=== PATIENT | male | born 1980 | race Caucasian/White ===

== ENCOUNTER 2025-02-21 15:14 | Emergency (ER) | payer SELFPAY ==
--- NOTE | ~2025-02-21 | XR_ITS ---
HISTORY: injury/fall COMPARISON: None TECHNIQUE: 4 views of the left knee were performed FINDINGS: No acute or subacute fracture. Medial and lateral tibiofemoral joint space narrowing is identified. High riding patella is noted. Thickening of the tibial patellar tendon is noted within the infrapatellar joint space with incomplet e visualization of the entirety of the tendon on plain film evaluation. No suprapatellar joint effusion is identified. IMPRESSION: High riding patella. Agree with CT examination. No acute displaced fracture. Reviewed, dictated and finalized at location A.
--- NOTE | ~2025-02-21 | CT_ITS ---
CLINICAL INDICATION: Left knee pain after a fall. COMPARISON: Reference is made to plain radiograph of the knee performed 13 minutes earlier. TECHNIQUE: Computed tomography (CT) of the left knee was performed without intravenous contrast. The dose-length product was 450.98 mGy-cm. FINDINGS/OBSERVATIONS: Redemonstration of patella mehrdad and a large joint effusion. Tendon thickening and a wavy appearance of the tibial patellar tendon is also redemonstrated, consist ent with patellar tendon rupture. The medialmost fibers of the quadriceps tendon are intact. Limited visualization of the lateralmost fibers, secondary to modality. No acute fracture is appreciated. IMPRESSION: Left-sided patellar tendon rupture. Reviewed, dictated and finalized at location A.
[2025-02-21 15:18] VITALS: BP 142/89; PULSE 76; RESP 14; TEMP 36.1; O2SAT 99
--- NOTE | 2025-02-21 15:39 | ED_ITS ---
HPI - Extremity Injury (Lower) General Chief Complaint: Extremity Injury, Lower <April Beard APRN - Last Filed: 02/21/25 15:42> Stated Complaint: L. knee injury after slip and fall <April Beard APRN - Last Filed: 02/21/25 15:42> Time Seen by Provider: 02/21/25 15:30 <April Beard APRN - Last Filed: 02/21/25 15:42> Focused HPI: Patient is a 44-year-old male who presents to the ER with left knee pain. He reports he was for golf and went looking for his for his be in [place]. Patient reports the slope was slippery and he fell. He reports he hurt his left knee and felt extreme pain. Patient is currently unable to move his left knee joint. He denies any other medical history relevant to this ER visit besides migraines. Patient is any daily medication. He denies any numbness and tingling, decreased ankle movement, decreased hip movement, or calf pain. GENERAL: Ill-appearing, well-nourished, and in distress d/t pain. HEAD: Normocephalic, atraumatic. CHEST: Clear to auscultation. ?No respiratory distress. HEART: Regular rate and rhythm.? NEURO: ?Alert and oriented x3. Patient screened in triage and initial orders placed.? ?Additional care and disposition to be based upon?diagnostic testing and treatment. <April Beard APRN - Last Filed: 02/21/25 15:42> Focused HPI: Patient is a 44-year-old male who presents to the ER with left knee pain. He reports he was playing golf and went looking for his for his ball in [place]. Patient reports the slope was slippery and he fell. He reports he hurt his left knee and felt extreme pain. Patient is currently unable to move his left knee joint. He denies any other medical history relevant to this ER visit besides migraines. Patient is any daily medication. He denies any numbness and tingling, decreased ankle movement, decreased hip movement, or calf pain. GENERAL: Ill-appearing, well-nourished, and in distress d/t pain. HEAD: Normocephalic, atraumatic. CHEST: Clear to auscultation. ?No respiratory distress. HEART: Regular rate and rhythm.? NEURO: ?Alert and oriented x3. Patient screened in triage and initial orders placed.? ?Additional care and disposition to be based upon?diagnostic testing and treatment. <Rashid Hinojosa MD - Last Filed: 02/21/25 20:30> History of Present Illness HPI Narrative: Agree with the HPI above <Rashid Hinojosa MD - Last Filed: 02/21/25 20:30> Related Data Allergies/Adverse Reactions: Allergies Allergy/AdvReac Type Severity Reaction Status Date / Time No Known Allergies Allergy Verified 02/21/25 15:23 <April Beard APRN - Last Filed: 02/21/25 15:42> Review of Systems Review of Systems: As reviewed above in HPI <Rashid Hinojosa MD - Last Filed: 02/21/25 20:30> Exam Narrative: GENERAL: Uncomfortable appearing from pain HEAD: [Normocephalic, atraumatic.] EYES: [PERRLA and EOMI.] ENT: Nares clear, no rhinorrhea or epistaxis. Mucous membranes moist. NECK: Supple. CHEST: [Clear to auscultation. No respiratory distress.] HEART: [Regular rate and rhythm]. No murmur heard. [Normal peripheral pulses.] ABDOMEN: [Soft, nondistended], [nontender], [No rigidity or guarding] EXTREMITIES: Prepatellar effusion, high-riding patella on examination, no medial or lateral joint laxity, negative Anjel's testing. inability to hold extensor mechanism of the left lower extremity. Ankle plantar flexion and dorsiflexion is intact with full strength. 2+ dorsalis pedis pulse. Warm extremity. Able to wiggle the toes. No overlying skin changes. SKIN: Warm, dry, no rash. NEURO: [No focal deficits]. Alert and oriented [x3.] PSYCH: [Normal mood and affect.] <Rashid Hinojosa MD - Last Filed: 02/21/25 20:30> Course Vital Signs Vital signs: Vital Signs Temperature 36.1 C L 02/21/25 15:18 Pulse Rate 76 02/21/25 15:18 Respiratory Rate 14 02/21/25 15:18 Blood Pressure 142/89 H 02/21/25 15:18 Pulse Oximetry 99 02/21/25 15:18 Oxygen Delivery Room Air 02/21/25 15:18 Temperature 37.1 C 02/21/25 17:45 Pulse Rate 57 L 02/21/25 17:45 Respiratory Rate 18 02/21/25 17:45 Blood Pressure 139/64 02/21/25 17:45 Pulse Oximetry 96 02/21/25 17:45 Oxygen Delivery Room Air 02/21/25 15:18 <April Beard, CORPORATE ASSOCIATE ATTORNEY - Last Filed: 02/21/25 15:42> Vital Signs Temperature 36.1 C L 02/21/25 15:18 Pulse Rate 76 02/21/25 15:18 Respiratory Rate 14 02/21/25 15:18 Blood Pressure 142/89 H 02/21/25 15:18 Pulse Oximetry 99 02/21/25 15:18 Oxygen Delivery Room Air 02/21/25 15:18 Temperature 37.1 C 02/21/25 17:45 Pulse Rate 57 L 02/21/25 17:45 Respiratory Rate 18 02/21/25 17:45 Blood Pressure 139/64 02/21/25 17:45 Pulse Oximetry 96 02/21/25 17:45 Oxygen Delivery Room Air 02/21/25 15:18 <Rashid Hinojosa MD - Last Filed: 02/21/25 20:30> MDM - Extremity Injury (Lower) MDM Narrative Medical decision making narrative: 44-year-old male presenting to the emergency department for evaluation of left knee pain after an injury. Patient states that he slipped down a hill while trying to retrieve his frisbee while playing golf. He felt a significant pop and felt immediate pain in his left knee and fell to the ground. He was not able to hold extensor mechanism or lift his leg against gravity. Distal neuro vasculature is intact. Examination reveals prepatellar effusion, high-riding patella on examination, no medial or lateral joint laxity, negative Anjel's testing. inability to hold extensor mechanism of the left lower extremity. Ankle plantar flexion and dorsiflexion is intact with full strength. 2+ dorsalis pedis pulse. Warm extremity. Able to wiggle the toes. No overlying skin changes. He has normal vital signs without any tachycardia, fever, hypoxia significant blood pressure concerns. Does not take any blood pressure medications or anticoagulants. Differential diagnosis includes patellar tendon disruption, quadriceps tendon disruption, patellar fracture, knee dislocation, patellar dislocation, internal derangement of the knee, fracture of the tib-fib or femur. Patient was given [place] and Dilaudid for analgesia. X-rays at bedside show patella [place] with clinical exam concerning for patellar tendon disruption. CT scan without contrast for further evaluation. Patient placed in a knee immobilizer. Will contact Orthopedics for recommendations. CT scan confirms patellar tendon rupture. Patient is adequately controlled from pain perspective during repeat evaluations, placed in a knee immobilizer provided weight-bearing crutches. I discussed the case with Dr. Diamond from Orthopedics and plan will be for outpatient follow-up with him. Patient co mfortable with this plan and patient was safely discharged home at this time with pain medications and orthopedics referral. <Rashid Hinojosa MD - Last Filed: 02/21/25 20:30> Medical Records Attestation: I reviewed the patient's medical records. <Rashid Hinojosa MD - Last Filed: 02/21/25 20:30> Imaging Data Attestation: I personally reviewed and interpreted this imaging study as follows: <Rashid Hinojosa MD - Last Filed: 02/21/25 20:30> My impression: Impressions Knee X-Ray 02/21/25 16:24 IMPRESSION: High riding patella. Agree with CT examination. No acute displaced fracture. Knee CT 02/21/25 16:59 IMPRESSION: Left-sided patellar tendon rupture. <Rashid Hinojosa MD - Last Filed: 02/21/25 20:30> Discharge Plan Discharge Clinical Impression: Rupture of left patellar tendon <April Beard APRN - Last Filed: 02/21/25 15:42> Patient Disposition: Home <April Beard APRN - Last Filed: 02/21/25 15:42> Condition: Stable <April Beard APRN - Last Filed: 02/21/25 15:42> Instructions: Antibiotic Form, Knee Immobilizer (ED), Tendon Rupture (ED), Patellar Tendon Repair (DC) <April Beard APRN - Last Filed: 02/21/25 15:42> Additional Instructions: You have a patellar tendon rupture of your left knee which is why you cannot extend the knee against gravity. We will send you home with strong pain medicines and anti-inflammatory measures. Maintain the knee immobilizer for comfort, you can bear weight as tolerated but use crutches for ambulation support. We spoke to orthopedics who will see you in their office for follow-up appointment. Call the number tomorrow morning to establish visit. Return with any emergent concerns such as intractable pain, inability to ambulate, worsening swelling or any new symptoms such as numbness in the leg. <April Beard APRN - Last Filed: 02/21/25 15:42> Patient Language: Citizen Of [place] <April Beard APRN - Last Filed: 02/21/25 15:42> Prescriptions: New ibuprofen 800 mg tablet 800 mg PO TID PRN (Reason: pain) Qty: 30 0RF methocarbamol 750 mg tablet 750 mg PO TID PRN (Reason: pain) Qty: 20 0RF lidocaine 5 % adhesive patch,medicated 1 patch topical DAILY Qty: 15 0RF Rx Instructions: leave on most painful area for up to 12 hrs acetaminophen [Tylenol Extra Strength] 500 mg tablet 1,000 mg PO TID PRN (Reason: pain) Qty: 30 0RF oxycodone 5 mg tablet 5 mg PO Q8H PRN (Reason: pain) Qty: 14 0RF <April Beard APRN - Last Filed: 02/21/25 15:42> Follow-up/Referrals: Alvaro Ferguson MD [Physician] - 2 Days (Patellar tendon rupture) PHYSICIAN,IMMIGRATION SPECIALIST [Primary Care Provider] - <April Beard APRN - Last Filed: 02/21/25 15:42> Time of Disposition: 17:27 <April Beard APRN - Last Filed: 02/21/25 15:42> 17:27 <Rashid Hinojosa MD - Last Filed: 02/21/25 20:30>
[2025-02-21] MEDS: HYDROcodone/acetaminophen (*CRX) 5-325 MG TABLET 1 TAB PO (15:51)
[2025-02-21] MEDS: HYDROmorphone HCL INJ (*CRX) 2 MG/ML VIAL 1 MG IM (16:43)
[2025-02-21 17:45] VITALS: BP 139/64; PULSE 57; RESP 18; TEMP 37.1; O2SAT 96
== END 2025-02-21 17:47 | disposition home or self-care (01) ==
PROVIDERS: Emergency Provider Student in an Organized Health Care Education/Training Program
DX: S76.112A Strain of left quadriceps muscle, fascia and tendon, initial encounter (principal); W01.0XXA Fall on same level from slipping, tripping and stumbling without subsequent striking against object, initial encounter
CPT/HCPCS: 73564; 73700; 96372; 99284; A9270; J1171

== ENCOUNTER 2025-03-01 01:08 | Day surgery (SDC) | payer MEDICAID, SELFPAY ==
[2025-02-24 11:14] VITALS: BMI 27.3
--- NOTE | 2025-02-24 11:15 | PC.NURSE ---
Report to the Outpatient Waiting Room, entrance under the green pavilion located off [facility], at time _1030_ on date _[phone]_. Planned Procedure Time: _1230_.? Time changes happen often and if your time is changed the preop area will call you the afternoon before. - You and your visitor will be asked to self-screen and do not enter if you have any COVID symptoms. Please call surgeon if you need to reschedule. - A mask is optional within the hospital at this time. Patients may have clear liquids (water, carbonated beverages, clear teas, apple juice) until 3 hours prior to surgery with a maximum of 20 ounces. - No food from midnight until time of surgery and no smoking, or chewing tobacco (or any form of nicotine). No chewing gum, candy or mints. Take only the following medications with a SIP of water on the morning of surgery: ___Oxycodone and Acetaminophen DO NOT STOP ANY OF YOUR OTHER PRESCRIPTION MEDICATIONS PRIOR TO SURGERY EXCEPT THE FOLLOWING Hold all vitamins and supplements for 3 days per anesthesiologist. Medications to discontinue per physician No Advil or Ibuprofen until after surgery.____ Date to take last dose Please no make-up, nail congolese, hairspray, perfume, deodorant, or body powder the day of surgery.? No jewelry (including any body piercings) or valuables the day of surgery, leave them at home.? Please take a shower or bath the night before, or the morning of, surgery with an antibacterial soap.? Wear comfortable, loose fitting clothing.? - Jewelry must be removed prior to entering the operating room.? Rings and piercings that are not removed may be cut off. - The hospital will not accept responsibility for valuables.? - Please leave all valuables, including medications, at home the day of surgery. If you are going home after surgery, a licensed pick up truck driver must drive you home.? - NO public transportation without another adult if you receive anesthesia. - We recommend that an adult stay with you for 24 hours following discharge. - We also recommend that you do not drive, make important decision, drink alcoholic beverages, or take any drugs that were not prescribed by your health care provider for at least 24 hours after your discharge time. Follow any additional instructions given to you from your surgeon. Telephone instructions given to __Jesse___and asked if any additional questions and then verbalized understanding. Patient advised to call surgeon office or pre surgery nurse liaison [phone] if any additional questions.
[2025-03-01] VITALS (12 sets, daily range): BP systolic 125–158; BP diastolic 69–98; PULSE 52–80; RESP 12–20; TEMP 36.3–36.6; O2SAT 93–98; BMI 29.5
[2025-03-01] MEDS: KETOROLAC 15 MG/ML VIAL (*BKC) IV PUSH (11:25)
--- NOTE | 2025-03-01 11:39 | WPDHPUPDATE1 ---
History and Physical Update Update Date/Time: 03/01/25 11:39 History and Physical has been reviewed, including an updated exam of the patient. There are NO changes in the patient's condition. Risks, benefits, and alternatives have been discussed and questions answered. Patient agrees to proceed with procedure.
--- NOTE | 2025-03-01 12:37 | P.PNAN_ITS ---
Anes - Initial Pre Proc Eval Procedure: Operation Date: 03/01/25 12:30 Proposed Procedures p Left Knee Patellar Tendon Reconstruction - Alvaro Ferguson MD Date/Time: 03/01/25 12:37 Surgeon: Alvaro Ferguson MD Pre Op Diagnosis: left knee patellar tendon rupture Patient Data Age: 44 Gender: M Height: 1.88 m Weight: 104.5 kg Last Vital Signs Temp 36.3 C L 03/01/25 10:35 Pulse 55 L 03/01/25 10:35 Resp 16 03/01/25 10:35 BP 158/98 H 03/01/25 10:35 Pulse Ox 98 03/01/25 10:35 O2 Del Method Room Air 03/01/25 10:35 Allergies Allergy/AdvReac Type Severity Reaction Status Date / Time No Known Allergies Allergy Verified 03/01/25 11:43 Home Medications ?Medication ?Instructions ?Recorded ?Confirmed ?Type acetaminophen 500 mg tablet 1,000 mg (2 x 500 mg) PO TID PRN 02/21/25 03/01/25 Rx (Tylenol Extra Strength) pain #30 tabs ibuprofen 800 mg tablet 800 mg PO TID PRN pain #30 tabs 02/21/25 02/24/25 Rx lidocaine 5 % topical patch 1 patch topical DAILY #15 ea 02/21/25 02/24/25 Rx vitamin B complex 1 cap PO DAILY 02/24/25 03/01/25 History methocarbamol 750 mg tablet 750 mg PO TID PRN pain #20 tabs 02/25/25 03/01/25 Rx ondansetron 8 mg disintegrating 8 mg PO Q6-8H PRN nausea and 02/25/25 03/01/25 Rx tablet vomiting #10 tabs oxycodone 5 mg tablet 5 mg PO Q8H PRN pain #30 tabs 02/25/25 03/01/25 Rx polyethylene glycol 3350 17 17 g PO DAILY PRN constipation 02/25/25 03/01/25 Rx gram/dose oral powder #119 grams sennosides 8.6 mg-docusate sodium 1 tab-cap PO BID #30 tabs 02/25/25 03/01/25 Rx 50 mg tablet Patient hx anesthesia problems: none Family hx anesthesia problems: none Results Review: All pre-operative results and documents have been reviewed as part of the pre-operative evaluation. [facility] Social History Social History Smoking status: Never smoker Tobacco type: cigarettes Substance use type: marijuana Other substance usage details: Infrequent. Anes - Eval Final PreProcedure Day of Procedure 03/01/25 12:37 Patient weight: overweight Heart: regular rate and rhythm Lungs: decreased breath sounds Airway: Mallampati scale class II Neurological: alert and oriented Last oral intake: >/= 8 hours ASA classification: II Emergent: no Anesthetic plan: proceed Anesthesia type and monitoring: general LMA and standard monitoring Results Review: All pre-operative results and documents have been reviewed as part of the pre- operative evaluation. Informed Consent: The patient's anesthetic plan and its attendant risks and benefits were discussed with the patient/family/POA. Questions were solicited and answers provided to the satisfaction of the patient/family/POA.
[2025-03-01] MEDS: ceFAZolin 2 GM/D5W 50 ML 2 GM/50 ML BAG IVPB (12:53)
[2025-03-01] MEDS: BUPivacaine HCL 0.5% PF 30 ML VIAL INFILTRATE (13:28)
[2025-03-01] MEDS: LACTATED RINGERS 1,000 ML 30 ML IV CONT ×2 (15:03→16:40)
--- NOTE | 2025-03-01 15:31 | W.PM.PROC2 ---
Procedure Note - Detailed Date of Procedure 03/01/25 Pre-op Diagnosis left knee patellar tendon rupture Post-op Diagnosis Same Procedure Performed Reconstruction left knee patellar tendon rupture with graft, secondary. Surgeon Alvaro Ferguson MD Factorer 1st perinatal breastfeeding assistant Anesthesia General Indications 44-year-old who fell and injured his left knee. He sustained a left infrapatellar tendon rupture from the patella. No ability to actively extend the knee. He desires operative treatment. Findings Complete rupture infrapatellar tendon with destruction of the tendon itself requiring graft application. Description of Procedure Patient identified in the preoperative holding. Informed consent given. Operative extremity marked. Patient received intravenous antibiotics. Patient brought to the operating room where underwent general anesthetic by anesthesia team. Positioned supine on operating room table. Time-out performed confirming the patient, site of the surgery and the plan. Left knee prepped and draped usual sterile surgical fashion using a ChloraPrep skin solution. Knee exsanguinated and a thigh tourniquet inflated to 250 mmHg. Standard anterior midline longitudinal incision made with 15 blade knife. Hemostasis controlled electrocautery. Incision was centered over the distal patella. Fascia was incised line skin incision. A large seroma was noted and have complete defect in the infrapatellar tendon as well as medial and lateral retinacula. The knee was suctioned out and irrigated as well and Suctioned again. Infrapatellar tendon was then repaired. Arthrex fiber tape suture was used in a locking Krackow type stitch. 3 strands of suture were utilized and brought out the proximal end of the infrapatellar tendon. Guide pins were then placed from distal to proximal through the patella. 1 was placed in the center and 1 medial, 1 lateral. Fiber tack suture device was then passed through the holes from proximal to distal with the fiber tack anchored proximally. With correct tension the sutures from the infrapatellar ligament were placed through the FiberTape loops. And running locking Krackow suture was then continued distal to bring the suture out the distal and of the infrapatellar ligament. Suture was tied to itself. Loops were then tightened into the patella to draw the infrapatellar ligament to the distal and of the patella. Good fixation was noted. The SwiveLock anchors were then placed in the proximal tibia and the FiberTape suture was brought down 3 medial and 3 lateral to the SwiveLock anchors with the knee in 30? of flexion to provide and internal brace. 0 Vicryl interrupted suture was then used to repair the medial and lateral retinaculum. Wound was thoroughly irrigated antibiotic solution. Due to the amount of damage to the infrapatellar ligament augmentation with graft was felt to be indicated. A 3 mm aflex human dermal graft was sutured into place with 3-0 Monocryl over the infrapatellar ligament. The capsule was then repaired with 0 Vicryl interrupted suture. Subcutaneous tissue was repaired with 2 Vicryl interrupted suture and 3-0 Monocryl interrupted suture and skin was repaired with job. Sterile dressing applied. The patient was then woken from anesthesia, extubated and taken to the recovery room in stable condition. All sponge, needle, instrument counts were correct at the end of the case. Implants Double knotless knee fiber tack x3, 4.75 mm SwiveLock x2, 3 mm a flex human dermis graft Estimated Blood Loss 10 Tourniquet Time Total Tourniquet Time: 75 Drains No Packing No Pathology None sent Complications None Condition Stable Disposition PACU [facility] Billing Surgery - Charge Forward: Surgery Billing ([id number])
[2025-03-01] MEDS: ONDANSETRON INJ 4 MG/2 ML VIAL IV PUSH (15:46)
[2025-03-01] MEDS: fentaNYL CITRATE INJ (*CRX) 100 MCG/2 ML VIAL 25 MCG IV PUSH ×5 (15:54→16:59)
[2025-03-01] MEDS: diphenhydrAMINE HCl INJ 50 MG/ML VIAL 25 MG IV PUSH (16:40)
[2025-03-01] MEDS: HYDROmorphone HCL INJ (*CRX) 1 MG/ML SYR IV PUSH (17:12)
--- NOTE | 2025-03-01 17:28 | SUR.PHASEII ---
1725 - dr. ramirez called for update on pt.
== END 2025-03-01 18:10 | disposition home or self-care (01) ==
PROVIDERS: Visit Provider Orthopaedic Surgery
PROC: (CPT 27380; principal; 2025-03-01 12:30)
DX: S76.112A Strain of left quadriceps muscle, fascia and tendon, initial encounter (principal); W10.2XXA Fall (on)(from) incline, initial encounter; Y93.53 Activity, golf
CPT/HCPCS: 27381; C1713; J0690; J1100; J1171; J1200; J1885; J2250; J2270; J2405; J2704; J3010; J7120; L1830